=== PATIENT | male | born 1965 | race Asian ===

== ENCOUNTER 2022-03-04 14:18 | Emergency (ER) | payer SELFPAY ==
--- NOTE | 2022-03-04 14:29 | Emergency Department Report ---
ED General Adult HPI - General Stated complaint: CARDIAC ARREST PUI?: No Time Seen by Provider: 03/04/22 14:26 Source: patient, EMS - History of Present Illness Initial comments: 56 year old brought in by EMS with call out for cardiac arrest. On arrival, EMS states likely witness cardiac arrest with with history of autism and intellectually challenged. From initial to arrival; total 45 minutes passed and 5 Epi, 1 Bicarb, 2 attempt of intubation, 1st IV blew and was able to reestablish 2nd IV access; no shock and no ROSC. After immediate transfer from EMS stretcher to our bed; no pulse felt and CPR resumed and 1mg epi given as well as 1amp of bicarb. Repeat pulse check and no pulse and code was stopped and time of called at 1420. ED Review of Systems ROS: Stated complaint: CARDIAC ARREST Other details as noted in HPI ED Past Medical Hx - Past Medical History Previous Medical History?: Yes ED Physical Exam - Respiratory Respiratory exam: Present: other (INTUBATED) - Cardiovascular Cardiovascular Exam: Present: other (ASYSTOLE) Critical care attestation.: If time is entered above; I have spent that time in minutes in the direct care of this critically ill patient, excluding procedure time. ED Disposition Clinical Impression: Cardiopulmonary arrest Disposition: 20 Is pt being admited?: No Does the pt Need Aspirin: No Condition: Stable Time of Disposition: 14:20
== END 2022-03-04 18:47 ==
LOC: ED 14:18
DX: I46.9 Cardiac arrest, cause unspecified (principal)
CPT/HCPCS: 92950; 99285